=== PATIENT | female | born 1935 | race Caucasian/White ===

== ENCOUNTER 2017-12-20 10:17 | Emergency (ER) | payer MEDICARE ==
[2017-12-20] MEDS ORDERED: predniSONE 20 MG TAB ONE (12:01)
--- NOTE | 2017-12-20 21:20 | RAD ---
LEFT FOOT THREE VIEWS: Date: 12-20-17 FINDINGS: Hallux valgus is present. There is some mild soft tissue swelling medial to the first metatarsal head . No fracture or periosteal reaction is seen at this time. All metatarsals appear intact. A little co rtical thickening along the fourth metatarsal shaft is probably not acute. The bones are mildly osteo penic. IMPRESSION: Hallux valgus with mild nearby swelling. POS: HOME
== END 2017-12-20 12:05 | disposition home or self-care (01) ==
LOC: BURERS 10:17
DX: M10.9 Gout, unspecified (principal); M06.9 Rheumatoid arthritis, unspecified; I10 Essential (primary) hypertension; Z86.73 Personal history of transient ischemic attack (TIA), and cerebral infarction without residual deficits; Z79.899 Other long term (current) drug therapy
CPT/HCPCS: J7506

== ENCOUNTER 2022-02-17 12:04 | Emergency (ER) | payer MEDICARE ==
[2022-02-17 12:55] LABS: #Lymphocytes 0.6 thou/uL (1.20-3.40); #Monocytes 0.7 thou/uL (0.11-0.59); #Neutrophils 12.9 thou/uL (1.40-6.50); %Basophils 0.3 % (0.0-1.0); %Lymphocytes 4.1 % (21.0-51.0); %Monocytes 5.1 % (0.0-10.0); %Neutrophils 90.5 % (42.0-75.0); Hemoglobin 13.1 g/dL (12.0-16.0); Mean Corpuscular HGB CONC 31.8 g/dL (32.0-36.0); Mean Corpuscular Hemoglobin 31.8 pg (27.0-31.0); Mean Corpuscular Volume 99.8 fL (78.0-98.0); Mean Platelet Volume 6.3 fL (7.4-10.4); Platelet Count 323 thou/uL (130-400); RBC Distribution Width 15.5 % (11.5-14.5); Red Blood Cell (RBC) Count 4.11 mill/uL (4.20-5.40); White Blood Cell (WBC) Count 14.2 thou/uL (4.8-10.8)
[2022-02-17 13:13] LABS: ALT (SGPT) 25 U/L (8-55); AST (SGOT) 23 U/L (5-34); Albumin 3.8 g/dL (3.4-4.8); Alkaline Phosphatase 159 U/L (40-110); Anion Gap 15 mmol/L (10-20); BUN (Urea Nitrogen) 30 mg/dL (9.8-20.1); Calc. Creatinine Clearance 0 mL/min (70-130); Calcium 9.1 mg/dL (7.8-10.44); Carbon Dioxide 27 mmol/L (23-31); Chloride 102 mmol/L (98-107); Glucose 141 mg/dL (83-110); Lipase 21 U/L (8-78); Potassium 4.7 mmol/L (3.5-5.1); Protein, Total 7.8 g/dL (5.8-8.1); Sodium 139 mmol/L (136-145)
[2022-02-17 13:41] LABS: Troponin I Less than 0.010 ng/mL (< 0.028)
[2022-02-17] MEDS ORDERED: Morphine 4 MG/ML VIAL ONE (14:54)
[2022-02-17] MEDS ORDERED: Diphenoxylate HCl/Atropine Tablet ONE (14:54)
[2022-02-17] MEDS ORDERED: Ondansetron PF 4 MG/2 ML Vial ONE (14:54)
== END 2022-02-17 16:10 | disposition home or self-care (01) ==
LOC: BURERS 12:04
DX: R11.2 Nausea with vomiting, unspecified (principal); R94.31 Abnormal electrocardiogram [ECG] [EKG]; R19.7 Diarrhea, unspecified; I10 Essential (primary) hypertension; I48.91 Unspecified atrial fibrillation; M06.9 Rheumatoid arthritis, unspecified; M19.90 Unspecified osteoarthritis, unspecified site; Z79.01 Long term (current) use of anticoagulants; Z79.899 Other long term (current) drug therapy; Z86.73 Personal history of transient ischemic attack (TIA), and cerebral infarction without residual deficits
CPT/HCPCS: 80053; 83605; 83690; 84484; 85025; 87045; 87046; 87077; 87324; 87427; 87449; 93005; 96361; 96374; 96375; J2270; J2405